=== PATIENT | female | born 2000 | race Two or more races ===

== ENCOUNTER 2021-01-21 08:39 | Emergency (ER) | payer OTHER ==
[~2021-01-21] VITALS: Ht 160 cm; Wt 73.9 kg
[2021-01-21 08:40] VITALS: BP 123/72
[2021-01-21 09:17] LABS: Urine Bacteria FEW /hpf (None Seen); Urine Blood Negative /uL (Negative); Urine Mucus FEW (None Seen); Urine Specific Gravity 1.028 (1.001-1.035); Urine WBC 225 /hpf (0 - 5)
== END 2021-01-21 09:33 | disposition home or self-care (01) ==
LOC: ER 08:39
DX: N76.0 Acute vaginitis (principal); B96.89 Other specified bacterial agents as the cause of diseases classified elsewhere; N39.0 Urinary tract infection, site not specified; Z32.02 Encounter for pregnancy test, result negative
CPT/HCPCS: 81001; 81025; 87210